=== PATIENT | male | born 1950 | race Caucasian/White ===

== ENCOUNTER → 2018-05-29 | Outpatient (CLI) | payer MEDICARE | END | disposition home or self-care (01) | DX: M84.421A Pathological fracture, right humerus, initial encounter for fracture (principal); M81.0 Age-related osteoporosis without current pathological fracture; M79.89 Other specified soft tissue disorders ==

== ENCOUNTER → 2018-07-17 | Outpatient (CLI) | payer MEDICARE | END | disposition home or self-care (01) | LOC: ORTHO 01:06 | DX: M19.011 Primary osteoarthritis, right shoulder (principal) ==

== ENCOUNTER 2019-01-26 14:48 | Inpatient (IN) | payer MEDICARE ==
[~2019-01-26] VITALS: Ht 180.3 cm; Wt 112.6 kg
[2019-01-26 15:06] VITALS: BP 125/72
[2019-01-26 15:17] LABS: BASO # 0.1 10*3/uL (0.0-0.1); EOS # 0.5 10*3/uL (0.0-0.4); EOS % 5.1 % (1.0-4.0); HEMATOCRIT 42.9 % (42.0-52.0); HEMOGLOBIN 14.5 g/dl (14.0-18.0); LYMPH # 3.7 10*3/uL (1.3-4.4); LYMPH % 37.5 % (27.0-41.0); MEAN CELL VOLUME 98.6 fl (80.0-94.0); MEAN CORPUSCULAR HGB 33.3 pg (27.0-31.0); MEAN CORPUSCULAR HGB CONC 33.8 g/dl (33.0-37.0); MEAN PLATELET VOLUME 10.7 fl (9.6-12.3); MONO # 1.3 10*3/uL (0.1-1.0); MONO % 13.6 % (3.0-9.0); NEUT # 4.2 10*3/uL (2.3-7.9); NEUT % 42.5 % (47.0-73.0); PLATELET COUNT AUTOMATED 165 10*3/uL (130-400); RED BLOOD COUNT 4.35 10*6/uL (4.50-5.90); RED CELL DISTRI WIDTH 13.6 % (0-14.5); WHITE BLOOD COUNT 9.8 10*3/uL (4.8-10.8)
[2019-01-26 15:35] LABS: ALBUMIN 3.6 gm/dl (3.1-4.5); ALKALINE PHOSPHATASE 87 U/L (45-117); BUN 24 mg/dl (7-24); CHLORIDE 110 mmol/L (98-107); CREATININE 1.03 mg/dL (0.70-1.30); POTASSIUM 3.6 mmol/L (3.5-5.1); SGOT/AST 14 IU/L (3-35); SGPT/ALT 26 U/L (12-78); SODIUM 139 mmol/L (136-145)
[2019-01-26 15:37] LABS: TROPONIN I < 0.015 ng/ml (<0.045)
[2019-01-26 16:22] LABS: BILIRUBIN NEGATIVE (NEGATIVE); BLOOD NEGATIVE (NEGATIVE); CLARITY CLEAR (CLEAR); COLOR YELLOW (YELLOW); GLUCOSE NEGATIVE (NEGATIVE); KETONE NEGATIVE (NEGATIVE); LEUKO ESTERASE NEGATIVE (NEGATIVE); NITRITE NEGATIVE (NEGATIVE); SPECIFIC GRAVITY 1.015 (1.005-1.030)
[2019-01-26 16:34] LABS: URINE AMPHETAMINES < 1000 (1000ng/ml); URINE BARBITURATES < 200 (200ng/ml); URINE BENZODIAZEPINES < 200 (200ng/ml); URINE CANNABINOIDS (THC) < 50 (50ng/ml); URINE COCAINE < 300 (300ng/ml); URINE METHADONE < 300 (300ng/ml); URINE OPIATES < 300 (300ng/ml)
[2019-01-26 16:37] LABS: URINE PHENCYCLIDINE < 25 (25ng/ml)
[2019-01-26 16:40] LABS: WBC 0-2 wbc/hpf (0-5)
--- NOTE | 2019-01-26 16:49 | NUR ---
PATIENT RESTING IN BED WITH NO C/O. NO S/S OF DISTRESS NOTED.
[2019-01-26 16:50] VITALS: BP 122/78
[2019-01-26 19:00] VITALS: BP 137/83
--- NOTE | 2019-01-26 19:00 | NUR ---
Time: 1899 A 68 year old MALE admitted to 4E under services of LIZET MOORE DO. Pt. arrived via stretcher from ER. Chief complaint: CAME IN FROM [facility] FOR C/O CONFUSION. CANDELARIA CHAN
[2019-01-26] MEDS ORDERED: ASPIRIN CHEWABL81 MG PO (19:08)
[2019-01-26] MEDS ORDERED: CELEXA20 MG PO (19:08)
[2019-01-26] MEDS ORDERED: DILTIAZEM HCL240 M1 PO (19:09)
[2019-01-26] MEDS ORDERED: DULCOLAX10 M1 R (19:10)
[2019-01-26] MEDS ORDERED: ELIQUIS5 M1 PO (19:11)
[2019-01-26] MEDS ORDERED: FLEET ENEMA 13133 ML R (19:16)
[2019-01-26] MEDS ORDERED: TUSSIN100 MG/52 PO (19:18)
[2019-01-26] MEDS ORDERED: GLUTOSE 1537.5 GM PO (19:21)
[2019-01-26] MEDS ORDERED: PRINIVIL10 MG PO (19:21)
[2019-01-26] MEDS ORDERED: RISPERDAL1 M1 PO (19:22)
[2019-01-26] MEDS ORDERED: MOM30 M1 PO (19:22)
[2019-01-26] MEDS ORDERED: TOPAMAX100 M1 PO (19:23)
[2019-01-26] MEDS ORDERED: TYLENOL EXTRA500 MG PO (19:24)
[2019-01-26] MEDS ORDERED: ZOCOR20 MG PO (19:25)
[2019-01-26] MEDS ORDERED: VITAMIN D-32000 UNI1 PO (19:25)
--- NOTE | 2019-01-26 19:30 | NUR ---
MED REC UPDATED WITH LIST FROM [facility].
[2019-01-26 20:00] VITALS: BP 137/83
--- NOTE | 2019-01-26 22:48 | NUR ---
MESSAGE LEFT WITH DAKOTA MODI AT [facility] REGARDING CONSULT ORDER.
[2019-01-27] VITALS: BP 121/62
[2019-01-27 06:25] LABS: BASO # 0.1 10*3/uL (0.0-0.1); BASO % 1.1 % (0.0-1.0); EOS # 0.4 10*3/uL (0.0-0.4); HEMATOCRIT 42.3 % (42.0-52.0); HEMOGLOBIN 14.5 g/dl (14.0-18.0); LYMPH # 2.6 10*3/uL (1.3-4.4); LYMPH % 30.1 % (27.0-41.0); MEAN CELL VOLUME 97.5 fl (80.0-94.0); MEAN CORPUSCULAR HGB 33.4 pg (27.0-31.0); MEAN CORPUSCULAR HGB CONC 34.3 g/dl (33.0-37.0); MEAN PLATELET VOLUME 10.7 fl (9.6-12.3); MONO # 1.1 10*3/uL (0.1-1.0); MONO % 13.2 % (3.0-9.0); NEUT # 4.3 10*3/uL (2.3-7.9); NEUT % 50.4 % (47.0-73.0); PLATELET COUNT AUTOMATED 161 10*3/uL (130-400); RED BLOOD COUNT 4.34 10*6/uL (4.50-5.90); RED CELL DISTRI WIDTH 13.2 % (0-14.5); WHITE BLOOD COUNT 8.5 10*3/uL (4.8-10.8)
[2019-01-27 07:07] LABS: ALBUMIN 3.4 gm/dl (3.1-4.5); BUN 18 mg/dl (7-24); CHLORIDE 114 mmol/L (98-107); CREATININE 0.88 mg/dL (0.70-1.30); HDL CHOLESTEROL 36 mg/dl (40-60); PHOSPHOROUS 3.3 mg/dL (2.5-4.9); POTASSIUM 3.7 mmol/L (3.5-5.1); SGOT/AST 20 IU/L (3-35); SGPT/ALT 28 U/L (12-78); SODIUM 141 mmol/L (136-145); TOTAL PROTEIN 7.7 gm/dL (6.4-8.2); TRIGLYCERIDES 57 mg/dl (<150); VLDL CHOLESTEROL 11 mg/dL (6-40)
[2019-01-27 07:13] LABS: ALKALINE PHOSPHATASE 85 U/L (45-117); CHOLESTEROL 110 mg/dL (<200); LDL CHOLESTEROL 63 mg/dL (9-159)
[2019-01-27 07:14] LABS: VITAMIN D, 25-HYDROXY 60.1 ng/mL (30-100)
[2019-01-27 08:00] VITALS: BP 126/68
[2019-01-27 12:00] VITALS: BP 134/90
[2019-01-27] MEDS ORDERED: RIVASTIGMINE1 EACH T (12:18)
--- NOTE | 2019-01-27 14:10 | NUR ---
PT TRANSPORTED BACK TO [facility] VIA [facility]. REPORT GIVEN TO RECIEVING NURSE. VSColin.
--- NOTE | 2019-01-29 08:21 | NUR ---
Nursing screen received and patient discharged from hospital. Thank you. Rachel García OTR/l
--- NOTE | 2019-01-29 09:10 | NUR ---
PHYSICAL THERAPY Nursing screen received and chart reviewed. Patient discharged on 01/27/19. Thank you for referral. Parvin Cao,PT,DPT.
== END 2019-01-27 13:48 | DRG 71 ==
LOC: ED 14:48 → EDHOLD 17:36 → 4E 18:41
PROVIDERS: Physician Assistant; Student in an Organized Health Care Education/Training Program; ADMIT Internal Medicine
DX: G93.41 Metabolic encephalopathy (principal); E72.20 Disorder of urea cycle metabolism, unspecified; F33.3 Major depressive disorder, recurrent, severe with psychotic symptoms; I69.351 Hemiplegia and hemiparesis following cerebral infarction affecting right dominant side; R47.01 Aphasia; E87.8 Other disorders of electrolyte and fluid balance, not elsewhere classified; E83.41 Hypermagnesemia; D75.89 Other specified diseases of blood and blood-forming organs; E66.01 Morbid (severe) obesity due to excess calories; L89.321 Pressure ulcer of left buttock, stage 1; R29.6 Repeated falls; I87.2 Venous insufficiency (chronic) (peripheral); E78.5 Hyperlipidemia, unspecified; F01.50 Vascular dementia, unspecified severity, without behavioral disturbance, psychotic disturbance, mood disturbance, and anxiety; F41.1 Generalized anxiety disorder; F44.5 Conversion disorder with seizures or convulsions; F60.9 Personality disorder, unspecified; I10 Essential (primary) hypertension; I48.2 Chronic atrial fibrillation; Z79.82 Long term (current) use of aspirin; Z79.899 Other long term (current) drug therapy; Z68.34 Body mass index [BMI] 34.0-34.9, adult

== ENCOUNTER → 2019-03-09 | Day surgery (SDC) | payer MEDICARE ==
[~2019-03-09] VITALS: Ht 180.3 cm; Wt 113.9 kg
[~2019-03-09] MED LIST: ASPIRIN CHEWABL81 MG PO; CELEXA20 MG PO; DILTIAZEM HCL240 M1 PO; DULCOLAX10 M1 R; ELIQUIS5 M1 PO; FLEET ENEMA 13133 ML R; GLUTOSE 1537.5 GM PO; MOM30 M1 PO; PRINIVIL10 MG PO; RISPERDAL1 M1 PO; RIVASTIGMINE1 EACH T; TOPAMAX100 M1 PO; TUSSIN100 MG/52 PO; TYLENOL EXTRA500 MG PO; VITAMIN D-32000 UNI1 PO; ZOCOR20 MG PO
--- NOTE | ~2019-03-09 | O ---
[place], [place] OPERATIVE NOTE NAME: NICOLA GARVIN UNIT #: [id number] ROOM: DOCTOR: TRISTIAN CASTRO MD BIRTHDATE: [birth year] DOS: 03/09/2019 INDICATION: The patient has presented with chief complaint of cerebrovascular accident and aphasia. ALLERGIES: No known medication. FAMILY HISTORY: Noncontributory. PAST MEDICAL HISTORY: CVA and hyperlipidemia. SOCIAL HISTORY: Nonsmoker, nonalcohol consumer. Resides in assisted. PROCEDURE: Today's procedure part of investigation is colonic screening. PREMEDICATION: Propofol. SCOPE: Olympus forward-viewing colonoscope 10L video. REPORT: After putting the patient in left lateral position and application of lubricant to the scope, the scope was introduced. Thereafter, under direct visualization, advanced through the length of colon without difficulty. Mucosa and vascularity carefully examined. No ulceration, no lesion seen. Base of the cecum explored, appendiceal orifice identified, ileocecal valve photographed. The patient extubated, tolerated the procedure well. IMPRESSION: Normal colonoscopic examination. PLAN: Regular diet. Follow-up colonoscopy in 10 years unless there are symptoms in which case follow-up should be as needed. ACTIVITY: As tolerated in assisted. Thank you very much indeed for your kind referral. [place], [place] OPERATIVE NOTE NAME: NICOLA GARVIN UNIT #: [id number] ROOM: DOCTOR: GLORIA REYES,TRISTIAN BIRTHDATE: [birth year] TRISTIAN CASTRO MD CM:OPRECORD:OPERATIVE NOTE 1202 [id number] TRISTIAN CSATRO MD 03/12/19 0805 interface
--- NOTE | ~2019-03-09 | POSTOPNOTE ---
[place], [place] POSTOPERATIVE PROGRESS NOTE NAME: NICOLA GARVIN UNIT #: [id number] ROOM: DOCTOR: TRISTIAN CASTRO MD BIRTHDATE: [birth year] DATE: 03/09/19 GI NOTE PREOPERATIVE DIAGNOSIS: COLONIC SCREENING POSTOP UPPER GI PROC/FINDINGS: UPPER GI PROCEDURE/SURGERY: NORMAL COLONOSCOPY TRISTIAN CASTRO MD CM:POSTOPN 1204 1204 TRISTIAN CASTRO MD 03/09/19 1205 EDDIE ARMENDARIZ.R
[2019-03-09 11:59] VITALS: BP 121/61
[2019-03-09 12:13] VITALS: BP 140/83
[2019-03-09 12:30] VITALS: BP 148/78
== END | disposition home or self-care (01) ==
LOC: SDC 03-06 12:30
DX: Z12.11 Encounter for screening for malignant neoplasm of colon (principal); I10 Essential (primary) hypertension; F41.9 Anxiety disorder, unspecified; I48.91 Unspecified atrial fibrillation; Z79.899 Other long term (current) drug therapy; Z86.73 Personal history of transient ischemic attack (TIA), and cerebral infarction without residual deficits
CPT/HCPCS: 00812; G0121

== ENCOUNTER → 2020-02-21 | Outpatient (CLI) | payer MEDICARE | END | disposition home or self-care (01) | LOC: CT 02-12 14:00 | PROVIDERS: ATTEND Internal Medicine | DX: R20.2 Paresthesia of skin (principal); I63.89 Other cerebral infarction; G93.89 Other specified disorders of brain; J32.2 Chronic ethmoidal sinusitis ==

== ENCOUNTER → 2022-07-06 | Outpatient (CLI) | payer MEDICARE | END | disposition home or self-care (01) | LOC: US 13:00 | PROVIDERS: ATTEND Urology | DX: N50.3 Cyst of epididymis (principal); N43.3 Hydrocele, unspecified; N50.819 Testicular pain, unspecified; R39.11 Hesitancy of micturition; R41.82 Altered mental status, unspecified ==

== ENCOUNTER 2022-08-28 16:01 | Emergency (ER) | payer MEDICARE | END 2022-08-28 22:02 | LOC: ED 16:01 | DX: S42.215A Unspecified nondisplaced fracture of surgical neck of left humerus, initial encounter for closed fracture (principal); S81.012A Laceration without foreign body, left knee, initial encounter; S81.011A Laceration without foreign body, right knee, initial encounter; F41.9 Anxiety disorder, unspecified; R47.01 Aphasia; I10 Essential (primary) hypertension; F12.90 Cannabis use, unspecified, uncomplicated; W19.XXXA Unspecified fall, initial encounter; Y93.89 Activity, other specified; Y92.89 Other specified places as the place of occurrence of the external cause; Y99.8 Other external cause status ==

== ENCOUNTER → 2022-09-17 | Outpatient (CLI) | payer MEDICARE | END | disposition home or self-care (01) | LOC: ORTHO 01:09 | PROVIDERS: ATTEND Orthopaedic Surgery | DX: S42.202D Unspecified fracture of upper end of left humerus, subsequent encounter for fracture with routine healing (principal); X58.XXXD Exposure to other specified factors, subsequent encounter ==

== ENCOUNTER → 2022-10-15 | Outpatient (CLI) | payer MEDICARE | END | disposition home or self-care (01) | LOC: ORTHO 03:52 | PROVIDERS: ATTEND Orthopaedic Surgery | DX: S42.202D Unspecified fracture of upper end of left humerus, subsequent encounter for fracture with routine healing (principal); X58.XXXD Exposure to other specified factors, subsequent encounter ==

== ENCOUNTER → 2023-07-01 | Outpatient (CLI) | payer MEDICARE, OTHER | END | disposition home or self-care (01) | LOC: US 01:27 | PROVIDERS: ATTEND Urology | DX: R33.9 Retention of urine, unspecified (principal); I48.20 Chronic atrial fibrillation, unspecified; F33.3 Major depressive disorder, recurrent, severe with psychotic symptoms; F41.9 Anxiety disorder, unspecified; I10 Essential (primary) hypertension; E78.5 Hyperlipidemia, unspecified ==

== ENCOUNTER 2023-12-01 19:40 | Inpatient (IN) | payer MEDICARE, OTHER ==
[~2023-12-01] VITALS: Ht 182.8 cm; Wt 85.8 kg
[2023-12-01 19:40] VITALS: BP 104/70
[2023-12-01 21:30] LABS: BILIRUBIN Negative (Negative); BLOOD Negative (Negative); CLARITY Turbid (Clear); COLOR Yellow (Yellow); GLUCOSE Negative (Negative); KETONE Trace (Negative); LEUKO ESTERASE 3+ (Negative); NITRITE Negative (Negative)
[2023-12-01 21:35] LABS: PH 8.5 (4.5-8.0)
[2023-12-01 21:36] LABS: WBC TNTC wbc/hpf (0-5)
[2023-12-01 21:37] LABS: BACTERIA 3+; RBC 0-2 rbc/hpf (0-2); TRIP PHOS CRYSTALS 1+
[2023-12-01] MEDS ORDERED: Ceftriaxone Sodium 1 GM/10 ML SYR IV ONE (22:15)
[2023-12-01] MEDS ORDERED: Magnesium Hydroxide 30 ML UDC PO PRN (23:30)
[2023-12-01] MEDS ORDERED: Acetaminophen/Hydrocodone 5 MG/325 MG TABLET PO PRN (23:30)
[2023-12-01] MEDS ORDERED: ACETAMINOPHEN 650 MG SUPP R PRN (23:30)
[2023-12-01] MEDS ORDERED: ACETAMINOPHEN 325 MG TAB PO PRN (23:30)
[2023-12-01] MEDS ORDERED: BISACODYL 5 MG TAB PO PRN (23:30)
[2023-12-01] MEDS ORDERED: BISACODYL 10 MG SUPP R PRN (23:30)
[2023-12-01] MEDS ORDERED: Ondansetron Hydrochloride 4 MG/2 ML VIAL IV PRN (23:30)
[2023-12-02] MEDS ORDERED: ASPIRIN81 M1 PO (00:04)
[2023-12-02] MEDS ORDERED: CITALOPRAM20 MG PO (00:05)
[2023-12-02] MEDS ORDERED: DILTIAZEM ER240 M1 PO (00:07)
[2023-12-02] MEDS ORDERED: FLOMAX0.4 MG PO (00:16)
[2023-12-02] MEDS ORDERED: LISINOPRIL30 MG PO (00:18)
[2023-12-02] MEDS ORDERED: COLACE100 MG PO (00:19)
[2023-12-02] MEDS ORDERED: PROSCAR5 M1 PO (00:21)
[2023-12-02] MEDS ORDERED: VITAMIN B121000 MC3 PO (00:21)
[2023-12-02] MEDS ORDERED: NATURE'S BLEND F1 MG PO (00:21)
[2023-12-02 02:11] VITALS: BP 103/59
[2023-12-02 06:35] LABS: BASO # 0.1 10*3/uL (0.0-0.1); BASO % 0.9 % (0.0-1.0); EOS # 0.4 10*3/uL (0.0-0.4); EOS % 3.9 % (1.0-4.0); HEMATOCRIT 41.1 % (42.0-52.0); LYMPH # 3.1 10*3/uL (1.3-4.4); LYMPH % 29.3 % (27.0-41.0); MEAN CELL VOLUME 101.5 fl (80.0-94.0); MEAN CORPUSCULAR HGB 34.1 pg (27.0-31.0); MEAN CORPUSCULAR HGB CONC 33.6 g/dl (33.0-37.0); MEAN PLATELET VOLUME 10.6 fl (9.6-12.3); MONO # 1.1 10*3/uL (0.1-1.0); MONO % 10.7 % (3.0-9.0); NEUT # 5.8 10*3/uL (2.3-7.9); PLATELET COUNT AUTOMATED 162 10*3/uL (130-400); RED BLOOD COUNT 4.05 10*6/uL (4.50-5.90); RED CELL DISTRI WIDTH 13.6 % (0-14.5); WHITE BLOOD COUNT 10.6 10*3/uL (4.8-10.8)
[2023-12-02 07:35] LABS: VITAMIN D, 25-HYDROXY 62.6 ng/mL (30-100)
[2023-12-02 07:36] LABS: ALKALINE PHOSPHATASE 69 U/L (46-116); BUN 18 mg/dl (9-23); CHLORIDE 115 mmol/L (98-107); CHOLESTEROL 105 mg/dL (<200); FREE T4 0.93 ng/dl (0.89-1.76); LDL CHOLESTEROL 60 mg/dL (9-159); POTASSIUM 3.9 mmol/L (3.4-5.1); TOTAL PROTEIN 6.9 gm/dL (6.0-8.0); TRIGLYCERIDES 67 mg/dl (<150)
[2023-12-02 08:02] LABS: SGPT/ALT < 7 U/L (5-49)
[2023-12-02] MEDS ORDERED: Enoxaparin Sodium 40 MG/0.4 ML SYR SC SCH (10:00)
[2023-12-02] MEDS ORDERED: APIXABAN 5 MG TAB PO SCH (10:00)
[2023-12-02] MEDS ORDERED: Ceftriaxone Sodium 1 GM in SYRINGE INFUSION 10 ML IV SCH (10:00)
[2023-12-02 11:23] VITALS: BP 99/69
[2023-12-02 18:06] VITALS: BP 112/64
[2023-12-02 20:00] VITALS: BP 110/58
[2023-12-02] MEDS ORDERED: AQUAPHOR OINTMENT Base 50 GM TUBE T SCH (22:00)
[2023-12-03] VITALS: BP 104/65
[2023-12-03 06:05] LABS: BASO # 0.1 10*3/uL (0.0-0.1); BASO % 0.9 % (0.0-1.0); EOS # 0.5 10*3/uL (0.0-0.4); EOS % 4.5 % (1.0-4.0); LYMPH # 2.7 10*3/uL (1.3-4.4); LYMPH % 26.6 % (27.0-41.0); MEAN CELL VOLUME 101.7 fl (80.0-94.0); MEAN CORPUSCULAR HGB 34.1 pg (27.0-31.0); MEAN CORPUSCULAR HGB CONC 33.6 g/dl (33.0-37.0); MEAN PLATELET VOLUME 11.6 fl (9.6-12.3); MONO # 1.1 10*3/uL (0.1-1.0); MONO % 11.3 % (3.0-9.0); NEUT # 5.7 10*3/uL (2.3-7.9); NEUT % 56.4 % (47.0-73.0); PLATELET COUNT AUTOMATED 173 10*3/uL (130-400); RED BLOOD COUNT 4.13 10*6/uL (4.50-5.90); RED CELL DISTRI WIDTH 13.9 % (0-14.5); WHITE BLOOD COUNT 10.1 10*3/uL (4.8-10.8)
[2023-12-03] MEDS ORDERED: HEEL PROTECTOR DEVICE ONE (06:08)
[2023-12-03] MEDS ORDERED: CHAIR CUSHION DEVICE ONE (06:08)
[2023-12-03 06:22] LABS: BUN 18 mg/dl (9-23); CHLORIDE 111 mmol/L (98-107); POTASSIUM 3.6 mmol/L (3.4-5.1)
[2023-12-03 08:00] VITALS: BP 144/95
[2023-12-03] MEDS ORDERED: CITALOPRAM 20 MG TAB PO SCH (10:00)
[2023-12-03] MEDS ORDERED: Rivastigmine Tartrate 4.6 MG/24 HR PATCH T SCH (10:00)
[2023-12-03] MEDS ORDERED: Polyethylene Glycol 3350 17 GM PACKET PO SCH (10:45)
[2023-12-03] MEDS ORDERED: DOCUSATE SODIUM 100 MG CAP PO SCH (10:45)
[2023-12-03 13:00] VITALS: BP 116/53
[2023-12-03 16:00] VITALS: BP 116/53
[2023-12-03 20:00] VITALS: BP 124/79
[2023-12-03] MEDS ORDERED: TOPIRAMATE 100 MG TAB PO SCH (22:00)
[2023-12-03] MEDS ORDERED: SIMVASTATIN 20 MG TAB PO SCH (22:00)
[2023-12-04] VITALS: BP 113/63
[2023-12-04 08:00] VITALS: BP 123/81
[2023-12-04] MEDS ORDERED: DILTIAZEM CD 240 MG CAP PO SCH (10:00)
[2023-12-04] MEDS ORDERED: CYANOCOBALAMIN 500 MCG TAB PO SCH (10:00)
[2023-12-04] MEDS ORDERED: FOLIC ACID 1 MG TAB PO SCH (10:00)
[2023-12-04] MEDS ORDERED: ASPIRIN ENTERIC COATED 81 MG TAB PO SCH (10:00)
[2023-12-04] MEDS ORDERED: FINASTERIDE 5 MG TAB PO SCH (10:00)
[2023-12-04] MEDS ORDERED: LISINOPRIL 10 MG TAB PO SCH (10:00)
[2023-12-04] MEDS ORDERED: Cholecalciferol 2,000 UNIT TABLET (50 MCG) PO SCH (10:00)
[2023-12-04] MEDS ORDERED: Tamsulosin Hydrochloride 0.4 MG CAP PO SCH (10:00)
[2023-12-04 12:00] VITALS: BP 122/67
[2023-12-04 16:00] VITALS: BP 120/74
[2023-12-04 20:00] VITALS: BP 96/68
[2023-12-05] VITALS: BP 106/70
[2023-12-05 08:00] VITALS: BP 121/74
[2023-12-05 12:00] VITALS: BP 120/82
[2023-12-05] MEDS ORDERED: OMNICEF300 MG PO (12:40)
== END 2023-12-05 16:34 | DRG 690 ==
LOC: ED 19:40 → 4E 22:50 → EDHOLD 22:50 → 4E 12-02 14:39
PROVIDERS: Internal Medicine; Student in an Organized Health Care Education/Training Program; ADMIT Internal Medicine; ATTEND Internal Medicine
DX: N30.00 Acute cystitis without hematuria (principal); F33.2 Major depressive disorder, recurrent severe without psychotic features; I48.20 Chronic atrial fibrillation, unspecified; I10 Essential (primary) hypertension; E78.5 Hyperlipidemia, unspecified; F01.50 Vascular dementia, unspecified severity, without behavioral disturbance, psychotic disturbance, mood disturbance, and anxiety; F41.9 Anxiety disorder, unspecified; D53.9 Nutritional anemia, unspecified; E87.8 Other disorders of electrolyte and fluid balance, not elsewhere classified; R73.9 Hyperglycemia, unspecified; F22 Delusional disorders; F44.5 Conversion disorder with seizures or convulsions; F60.9 Personality disorder, unspecified; S80.211A Abrasion, right knee, initial encounter; K59.00 Constipation, unspecified; I69.320 Aphasia following cerebral infarction; X58.XXXA Exposure to other specified factors, initial encounter; Y93.89 Activity, other specified; Y92.89 Other specified places as the place of occurrence of the external cause; Y99.8 Other external cause status

== ENCOUNTER 2024-05-21 00:29 | Emergency (ER) | payer MEDICARE, OTHER ==
[~2024-05-21 00:29] MED LIST changes: +ASPIRIN81 M1 PO; +CITALOPRAM20 MG PO; +COLACE100 MG PO; +DILTIAZEM ER240 M1 PO; +FLOMAX0.4 MG PO; +LISINOPRIL30 MG PO; +NATURE'S BLEND F1 MG PO; +OMNICEF300 MG PO; +PROSCAR5 M1 PO; +VITAMIN B121000 MC3 PO
== END 2024-05-21 04:55 | disposition home or self-care (01) ==
LOC: ED 00:29
DX: S00.93XA Contusion of unspecified part of head, initial encounter (principal); S00.81XA Abrasion of other part of head, initial encounter; I10 Essential (primary) hypertension; F41.9 Anxiety disorder, unspecified; W01.10XA Fall on same level from slipping, tripping and stumbling with subsequent striking against unspecified object, initial encounter; Y93.89 Activity, other specified; Y92.129 Unspecified place in nursing home as the place of occurrence of the external cause; Y99.8 Other external cause status